=== PATIENT | female | born 1990 | race Hispanic/Latino ===

== ENCOUNTER 2018-08-31 05:50 | Emergency (ER) | payer OTHER ==
[2018-08-31 06:09] VITALS: BP 115/74; PULSE 79; RESP 18; TEMP 97.6; O2SAT 99
--- NOTE | 2018-08-31 07:01 | ED PDOC ---
HPI: CCC, URI, Sore Throat Time Seen by Provider: 08/31/18 06:35 Chief Complaint (Nursing): ENT Problem Chief Complaint (Provider): ENT Problem History Per: Patient History/Exam Limitations: no limitations Onset/Duration Of Symptoms: Days (x1) Associated Symptoms: Nasal Congestion Additional Complaint(s): 27 years old female with no PMHx presents to ER for evaluation of right ear pain onset this morning. Patient reports facial pain and nasal congestion that started yesterday. She states she was treated for sinus infection with amoxicillin few months aogo. Patient has ENT appointment next Thursday. She denies taking any medications for pain. PMD: None provided Past Medical History Reviewed: Historical Data, Nursing Documentation, Vital Signs Vital Signs: Last Vital Signs Temp 97.6 F 08/31/18 06:06 Pulse 79 08/31/18 06:06 Resp 18 08/31/18 06:06 BP 115/74 08/31/18 06:06 Pulse Ox 99 08/31/18 06:06 - Medical History PMH: No Chronic Diseases - Surgical History Surgical History: No Surg Hx - Family History Family History: States: Unknown Family Hx - Social History Current smoker - smoking cessation education provided: No Alcohol: Social Drugs: Denies - Home Medications Home Medications: Ambulatory Orders Medication Instructions Recorded Amoxicillin/Clavulanate [Augmentin 1 tab PO BID #14 tab 08/31/18 875 MG-125 MG] Ciprofloxacin/Dexamethasone 4 drop AD BID #1 bottle 08/31/18 [Ciprodex Otic] - Allergies Allergies/Adverse Reactions: Allergies Allergy/AdvReac Type Severity Reaction Status Date / Time No Known Allergies Allergy Verified 08/31/18 06:06 Review of Systems ROS Statement: Except As Marked, All Systems Reviewed And Found Negative Constitutional: Positive for: Other (Facial pain) ENT: Positive for: Ear Pain (Right), Nose Congestion Physical Exam - Reviewed Nursing Documentation Reviewed: Yes Vital Signs Reviewed: Yes - Physical Exam Appears: Positive for: Well, No Acute Distress Head Exam: Positive for: ATRAUMATIC, NORMOCEPHALIC Skin: Positive for: Normal Color, Warm, Dry Eye Exam: Positive for: Normal appearance ENT: Positive for: Nasal Congestion, Other (External otitis and middle ear infection to the right ear, (narrowed swollen external canal, imiddle ear red) left ear normal) Neck: Positive for: Painless ROM, Supple Cardiovascular/Chest: Positive for: Regular Rate, Rhythm. Negative for: Murmur Respiratory: Positive for: Normal Breath Sounds. Negative for: Respiratory Distress Gastrointestinal/Abdominal: Positive for: Normal Exam, Soft. Negative for: Tenderness Back: Positive for: Normal Inspection. Negative for: L CVA Tenderness, R CVA Tenderness Neurological/Psych: Positive for: Awake, Alert, Oriented (x3) - ECG O2 Sat by Pulse Oximetry: 99 (RA) Pulse Ox Interpretation: Normal Medical Decision Making Medical Decision Making: Time: 657 Initial plan: external and middle ear infection --Motrin --Augmentin 0700 Patient stable for dc and outpt follow up went Scribe Attestation: Documented by Krystina Richard, acting as a scribe for Pattie Klein MD. Provider Scribe Attestation: All medical record entries made by the Scribe were at my direction and personally dictated by me. I have reviewed the chart and agree that the record accurately reflects my personal performance of the history, physical exam, medical decision making, and the department course for this patient. I have also personally directed, reviewed, and agree with the discharge instructions and disposition. Disposition - Clinical Impression Clinical Impression: Otitis media, Otitis externa - Patient ED Disposition Is Patient to be Admitted: No Counseled Patient/Family Regarding: Studies Performed, Diagnosis, Need For Followup - Disposition Referrals: Alex Dixon MD [Staff Provider] - Disposition: Transfer of Care Disposition Time: 07:00 Condition: IMPROVED Additional Instructions: follow up with ENT doctor within one week take motrin for pain as needed return to the ED with any worsening or concerning symptoms Prescriptions: Amoxicillin/Clavulanate [Augmentin 875 MG-125 MG] 1 tab PO BID #14 tab Ciprofloxacin/Dexamethasone [Ciprodex Otic] 4 drop AD BID #1 bottle Instructions: Ear Infections (Otitis Media) (DC), Outer Ear Infection (DC) Forms: [employer] (Al[place]ian) Patient Signed Over To: Edi Grullon (reevaluation)
== END 2018-08-31 07:24 | disposition home or self-care (01) ==
LOC: H.ER 05:50
DX: H66.90 Otitis media, unspecified, unspecified ear (principal); H60.90 Unspecified otitis externa, unspecified ear